=== PATIENT | female | born 1980 | race Caucasian/White ===

== ENCOUNTER → 2016-12-21 | Outpatient (CLI) | payer OTHER ==
[~2016-12-21] MED LIST: ADVIN25/60 INH; ALBUAER2 INH; ASCO500C43 PO; CHOL1000 PO; CHOL100010 PO; ENOX120I SQ; FERR1TAB13 PO; FERR325T51 PO; HYDR-5688 PO; LABE100T23 PO; LEVO112T4 PO; RANI300C PO; VENL150C56 PO; VNTHFA/IN INH
== END | disposition home or self-care (01) ==
LOC: C.PAPS 15:19
PROVIDERS: ATTEND Obstetrics & Gynecology
DX: Z01.419 Encounter for gynecological examination (general) (routine) without abnormal findings (principal)

== ENCOUNTER 2017-06-09 12:29 | Emergency (ER) | payer OTHER ==
[~2017-06-09] VITALS: Ht 162.6 cm; Wt 145.6 kg
[~2017-06-09 12:29] MED LIST changes: -CHOL1000 PO; -ENOX120I SQ; -FERR1TAB13 PO; -HYDR-5688 PO; -VNTHFA/IN INH
[2017-06-09 12:34] VITALS: TEMP 36.8; Ht 162.6 cm; Wt 145.6 kg
--- NOTE | 2017-06-09 13:09 | EMERGENCY ROOM VISIT NOTE ---
History First contact with patient: 12:38 Chief Complaint: CALF PAIN Stated Complaint: LEFT LEG PAIN,CRAMPING,CHEST TIGHTNESS History of Present Illness The patient is a 36 year old female who presents to the Emergency Room via private vehicle with complaints of "left leg pain, cramping, chest tightness". The patient states that she has a history of DVT, and pulmonary embolism in 2013. She states that 2 days ago, she began with heaviness in the back of the left calf, there is been persistent. She denies any injury or trauma. She states that with walking, the area feels weird. She states that it also radiates the medial aspect of the calf. She notes that last evening she developed slight chest tightness, but believes it may be her asthma or anxiety. She is currently not on any anticoagulation therapy. She denies any shortness of breath. Review of Systems A complete 10-point Review of Systems was discussed with the patient, with pertinent positives and negatives listed in the History of Present Illness. All remaining Review of Systems questions can be considered negative unless otherwise specified. Past Medical/Surgical History Medical Problems: (1) Acute bronchitis (2) Advanced maternal age, primigravida in third trimester, antepartum (3) Asthma (4) Bronchitis (5) Chest pain (6) Decreased movement (7) Encounter for supervision of high risk in third trimester, antepartum (8) Factor V Leiden carrier (9) Foreign body entering through skin (10) HTN (hypertension) (11) Otitis media (12) PNA (pneumonia) (13) Pre-eclampsia or eclampsia superimposed on pre-existing hypertension, antepartum (14) Preeclampsia (15) (16) Pulmonary emboli (17) Syncope (18) UTI (urinary tract infection) Family History FH: gallbladder disease FH: heart disease Hypertension Social History Smoking Status: Never Smoker Alcohol Use: none Drug Use: none Marital Status: Housing Status: lives with family Occupation Status: employed Current/Historical Medications Scheduled Ascorbic Acid (Vitamin C 500 mg), 1 TAB PO QAM Cholecalciferol (Vitamin D), 1,000 INTER.UNIT PO QAM Ferrous Sulfate (Iron Supplement), 325 MG PO QAM Labetalol Hcl (Labetalol Hcl), 200 MG PO QAM Labetalol Hcl (Labetalol Hcl), 100 MG PO HS Levothyroxine Sodium (Levothyroxine Sodium), 112 MCG PO QAM Ranitidine Hcl (Ranitidine Hcl), 300 MG PO QAM Venlafaxine Hcl (Effexor Extended Rel), 150 MG PO QAM Scheduled PRN Albuterol (Ventolin), 2 PUFFS INH Q4H PRN for Rescue/SOB Fluticasone Prop/Salmeterol (Advair Diskus 250/50 60 Dose), 1 PUFF INH BID PRN for SOB/Wheezing Physical Exam Vital Signs Date Time Temp Pulse Resp B/P (MAP) Pulse Ox O2 Delivery O2 Flow Rate FiO2 06/09/17 14:48 88 18 146/80 96 Room Air 06/09/17 14:06 87 18 146/89 97 Room Air 06/09/17 13:35 88 06/09/17 13:28 95 Room Air 06/09/17 12:34 36.8 96 18 144/85 98 Room Air Physical Exam VITAL SIGNS - Vital signs and nursing notes were reviewed. Afebrile, hypertensive 144/85, non-tachycardic and is saturating well on room air 98%. GENERAL -36-year-old female appearing her stated age who is in no acute distress. Communicates well with provider and answers questions appropriately. SKIN - Without rashes. No petechial rashes. HEAD - NC/AT. LUNGS - Chest wall symmetric without accessory muscle use, intercostals retractions, or central cyanosis. Normal vesicular breath sounds CTA B/L. No wheezes, rales, or rhonchi appreciated. CARDIAC - RRR with S1/S2. No murmur, rubs, or gallops appreciated. ABDOMEN - Abdominal contour without pulsations or visible masses. BS normoactive all four quadrants. No tenderness, palpable masses, hepatosplenomegaly, or ascites noted. EXTREMITIES - No clubbing or peripheral cyanosis. No pretibial edema present. No calf tenderness. No evidence of cellulitis. +5/5 strength noted in UE/LE bilaterally. Medical Decision & Procedures ER Provider Diagnostic Interpretation: (CHEST FOR PE) ANGIO WITH CT DOSE: 716.15 mGy.cm HISTORY: Chest pain dyspnea TECHNIQUE: Multiaxial CT images of the chest were performed following the intravenous administration of contrast to evaluate the pulmonary arteries. Maximal intensity projection images were also obtained. A dose lowering technique was utilized adhering to the principles of ALARA. COMPARISON STUDY: 09/16/2016 FINDINGS: There is a normal caliber thoracic aorta with no evidence for dissection. There is no evidence for pulmonary embolus. No pleural effusions. No pneumothorax. The liver and spleen are unremarkable. No mediastinal or hilar lymphadenopathy. The central airways are patent. The lungs are clear. IMPRESSION: No evidence for pulmonary embolus. Lungs are clear. The above report was generated using voice recognition software. It may contain grammatical, syntax or spelling errors. Electronically signed by: Shai Guy M.D. 06/09/2017 5:29 PM Dictated Date/Time: 06/09/2017 5:27 PM SINGLE VIEW CHEST CLINICAL HISTORY: Atypical chest pain. FINDINGS: An AP, portable, upright chest radiograph is compared to study dated 01/09/2016 and correlated with chest CT dated 09/16/2016. The examination is degraded by portable technique, large body habitus, and patient rotation. The cardiomediastinal silhouette is unremarkable. There is mild chronic elevation of the right hemidiaphragm. The lungs and pleural spaces are clear. No pneumothorax is seen. The bony thorax is grossly intact. IMPRESSION: No active disease in the chest. Electronically signed by: Jordy Evans M.D. 06/09/2017 1:08 PM Dictated Date/Time: 06/09/2017 1:08 PM ULTRASOUND LEFT LOWER EXTREMITY VENOUS CLINICAL HISTORY: Left calf tightness. COMPARISON STUDY: Bilateral lower extremity venous ultrasound dated 05/23/2015. TECHNIQUE: Real-time, grayscale, and color Doppler sonography of the deep veins of the left lower extremity was performed from the inguinal crease to the calf. Compression and augmentation were utilized. FINDINGS: There is no sonographic evidence of deep venous thrombosis identified in the left lower extremity. The common femoral, superficial femoral, and popliteal veins are patent and normally compressible. The greater saphenous vein and the profunda femoris vein at the junction with the common femoral vein are clear. The visualized calf veins are patent. IMPRESSION: There is no sonographic evidence of deep venous thrombosis identified in the left lower extremity. Electronically signed by: Jordy Evans M.D. 06/09/2017 2:46 PM Dictated Date/Time: 06/09/2017 2:45 PM Laboratory Results 06/09/17 13:25 Red Blood Count 4.50, Mean Corpuscular Volume 90.0, Mean Corpuscular Hemoglobin 30.2, Mean Corpuscular Hemoglobin Concent 33.6, Mean Platelet Volume 9.8, Neutrophils (%) (Auto) 64.9, Lymphocytes (%) (Auto) 26.7, Monocytes (%) (Auto) 6.5, Eosinophils (%) (Auto) 1.2, Basophils (%) (Auto) 0.5, Neutrophils # (Auto) 6.64, Lymphocytes # (Auto) 2.73, Monocytes # (Auto) 0.67, Eosinophils # (Auto) 0.12, Basophils # (Auto) 0.05 06/09/17 13:25 Test 06/09/17 13:25 06/09/17 13:32 06/09/17 16:39 White Blood Count 10.23 K/uL (4.8-10.8) Red Blood Count 4.50 M/uL (4.2-5.4) Hemoglobin 13.6 g/dL (12.0-16.0) Hematocrit 40.5 % (37-47) Mean Corpuscular Volume 90.0 fL (80-100) Mean Corpuscular Hemoglobin 30.2 pg (25-34) Mean Corpuscular Hemoglobin Concent 33.6 g/dl (32-36) Platelet Count 258 K/uL (130-400) Mean Platelet Volume 9.8 fL (7.4-10.4) Neutrophils (%) (Auto) 64.9 % Lymphocytes (%) (Auto) 26.7 % Monocytes (%) (Auto) 6.5 % Eosinophils (%) (Auto) 1.2 % Basophils (%) (Auto) 0.5 % Neutrophils # (Auto) 6.64 K/uL (1.4-6.5) Lymphocytes # (Auto) 2.73 K/uL (1.2-3.4) Monocytes # (Auto) 0.67 K/uL (0.11-0.59) Eosinophils # (Auto) 0.12 K/uL (0-0.5) Basophils # (Auto) 0.05 K/uL (0-0.2) RDW Standard Deviation 41.0 fL (36.4-46.3) RDW Coefficient of Variation 12.6 % (11.5-14.5) Immature Granulocyte % (Auto) 0.2 % Immature Granulocyte # (Auto) 0.02 K/uL (0.00-0.02) Prothrombin Time 10.7 SECONDS (9.0-12.0) Prothromb Time International Ratio 1.0 (0.9-1.1) Activated Partial Thromboplast Time 26.6 SECONDS (21.0-31.0) Partial Thromboplastin Ratio 1.0 D-Dimer 420 ug/L FEU (0-500) Anion Gap 5.0 mmol/L (3-11) Est Creatinine Clear Calc Drug Dose 138.4 ml/min Estimated GFR () 109.2 Estimated GFR (Non- 94.2 BUN/Creatinine Ratio 19.8 (10-20) Calcium Level 9.4 mg/dl (8.5-10.1) Magnesium Level 2.2 mg/dl (1.8-2.4) Total Bilirubin 0.3 mg/dl (0.2-1) Aspartate Amino Transf (AST/SGOT) 27 U/L (15-37) Alanine Aminotransferase (ALT/SGPT) 51 U/L (12-78) Alkaline Phosphatase 76 U/L (45-117) Total Creatine Kinase 245 U/L (26-192) Creatine Kinase MB 2.2 ng/ml (0.5-3.6) Creatine Kinase MB Ratio 0.9 (0-3.0) Total Protein 7.8 gm/dl (6.4-8.2) Albumin 3.9 gm/dl (3.4-5.0) Globulin 3.9 gm/dl (2.5-4.0) Albumin/Globulin Ratio 1.0 (0.9-2) Thyroid Stimulating Hormone (TSH) 2.210 uIu/ml (0.300-4.500) Bedside Troponin I < 0.030 ng/ml (0-0.045) Bedside D-Dimer > 450 ng/mlFEU (0-450) Medical Decision Patient was seen and evaluated as above. After obtaining a thorough history and physical examination, IV access was initiated and the above workup was performed. She persists was today with left lower extremity pain as well as chest tightness/shortness of breath. She is a history of PE in the past. Bedside EKG reveals normal sinus rhythm, questionable left ventricular hypertrophy. This was compared to previous, and was normal. No significant change was found. CBC reveals no leukocytosis or anemia. Coag study normal. D -dimer high. CMP reveals total CK high at 245. Otherwise unremarkable. Chest x-ray negative. Ultrasound negative. Benefits versus risk of obtaining CT the chest but discussed with the patient, and the decision was made to scan secondary to her underlying history and symptoms today. CT of the chest results as above. No evidence of PE. Patient this time appears stable for discharge. She is to follow-up with her family doctor in today's visit. Point care troponin was also negative. She was educated upon worrisome symptoms which to return, had questions answered prior to discharge, and was discharged home in good condition. In evaluation treatment this patient following differential diagnoses were entertained: NV, PE, ACS, costochondritis, rhabdomyolysis, among others. Impression Primary Impression: Pain of left calf Departure Information Dispostion Home / Self-Care Condition GOOD Referrals Vickie Brambila M.D. (PCP) Patient Instructions My [facility] Additional Instructions You were seen in emergency room for left lower extremity pain. Also slight shortness of breath. CT of her chest and ultrasound did not reveal any blood clot. Your CPK was slightly elevated, please drink plenty of fluids and have this repeated with her family doctor. Please schedule follow-up with family doctor regarding today's visit. Please return to the emergency department with any new/concerning symptoms.
[2017-06-09 13:28] VITALS: O2SAT 95
[2017-06-09 13:35] LABS: BASO % 0.5 %; BASO ABS # 0.05 K/uL (0-0.2); COMPLETE YES; EOS % 1.2 %; HEMATOCRIT 40.5 % (37-47); IG% 0.2 %; LYMPH % 26.7 %; LYMPH ABS # 2.73 K/uL (1.2-3.4); MEAN CORPUSCULAR HEMOGLOBIN 30.2 pg (25-34); MEAN CORPUSCULAR HGB CONC 33.6 g/dl (32-36); MEAN PLATELET VOLUME 9.8 fL (7.4-10.4); MONO % 6.5 %; NEUT % 64.9 %; PLATELET COUNT 258 K/uL (130-400); WHITE BLOOD COUNT 10.23 K/uL (4.8-10.8)
[2017-06-09 13:45] LABS: PROTHROMBIN TIME (PATIENT) 10.7 SECONDS (9.0-12.0)
[2017-06-09] MEDS ORDERED: LABE100T23 PO (13:51)
[2017-06-09 13:54] LABS: BUN/CREATININE RATIO 19.8 (10-20); CALCIUM 9.4 mg/dl (8.5-10.1); CREATININE 0.8 mg/dl (0.60-1.20); MAGNESIUM 2.2 mg/dl (1.8-2.4); POTASSIUM 4.1 mmol/L (3.5-5.1)
[2017-06-09 14:05] LABS: CKMB/CK RATIO 0.9 (0-3.0); THYROID STIMULATING HORMONE 2.21 uIu/ml (0.300-4.500)
--- NOTE | 2017-06-09 14:47 | DIAGNOSTIC IMAGING REPORT ---
ULTRASOUND LEFT LOWER EXTREMITY VENOUS CLINICAL HISTORY: Left calf tightness. COMPARISON STUDY: Bilateral lower extremity venous ultrasound dated 05/23/2015. TECHNIQUE: Real-time, grayscale, and color Doppler sonography of the deep veins of the left lower extremity was performed from the inguinal crease to the calf. Compression and augmentation were utilized. FINDINGS: There is no sonographic evidence of deep venous thrombosis identified in the left lower extremity. The common femoral, superficial femoral, and popliteal veins are patent and normally compressible. The greater saphenous vein and the profunda femoris vein at the junction with the common femoral vein are clear. The visualized calf veins are patent. IMPRESSION: There is no sonographic evidence of deep venous thrombosis identified in the left lower extremity. Electronically signed by: Jordy Evans M.D. 06/09/2017 2:46 PM Dictated Date/Time: 06/09/2017 2:45 PM
[2017-06-09] MEDS ORDERED: OPTIRAY 320 IV PRN (17:30)
--- NOTE | 2017-06-09 17:31 | DIAGNOSTIC IMAGING REPORT ---
(CHEST FOR PE) ANGIO WITH CT DOSE: 716.15 mGy.cm HISTORY: Chest pain dyspnea TECHNIQUE: Multiaxial CT images of the chest were performed following the intravenous administration of contrast to evaluate the pulmonary arteries. Maximal intensity projection images were also obtained. A dose lowering technique was utilized adhering to the principles of ALARA. COMPARISON STUDY: 09/16/2016 FINDINGS: There is a normal caliber thoracic aorta with no evidence for dissection. There is no evidence for pulmonary embolus. No pleural effusions. No pneumothorax. The liver and spleen are unremarkable. No mediastinal or hilar lymphadenopathy. The central airways are patent. The lungs are clear. IMPRESSION: No evidence for pulmonary embolus. Lungs are clear. The above report was generated using voice recognition software. It may contain grammatical, syntax or spelling errors. Electronically signed by: Shai Guy M.D. 06/09/2017 5:29 PM Dictated Date/Time: 06/09/2017 5:27 PM
[2017-06-09 17:42] VITALS: BP 150/97; PULSE 90; O2SAT 97
[2017-06-12] MEDS ORDERED: HYDR-5688 PO (07:25)
[2017-06-12] MEDS ORDERED: ENOX120I SQ (14:41)
== END 2017-06-09 17:42 | disposition home or self-care (01) ==
LOC: C.EDB 12:32 → C.EDA 17:42
DX: M79.605 Pain in left leg (principal); I10 Essential (primary) hypertension; Z79.899 Other long term (current) drug therapy; Z86.711 Personal history of pulmonary embolism; Z86.718 Personal history of other venous thrombosis and embolism; Z87.01 Personal history of pneumonia (recurrent); Z87.09 Personal history of other diseases of the respiratory system; Z87.440 Personal history of urinary (tract) infections

== ENCOUNTER 2017-06-11 20:18 | Observation (INO) | payer OTHER ==
[~2017-06-11] VITALS: Ht 162.6 cm; Wt 138.3 kg
[2017-06-11] MEDS ORDERED: KETOROLAC TROMETHAMINE 30 MG/ML VIAL IV STA (20:37)
[2017-06-11] MEDS ORDERED: SODIUM CHLORIDE 0.9% 1000ML 1,000 ML IV STA (20:37)
[2017-06-11] MEDS ORDERED: SODIUM CHLORIDE 0.9% 1000ML 1,000 ML IV ONE (20:37)
--- NOTE | 2017-06-11 20:41 | EMERGENCY ROOM VISIT NOTE ---
History Report prepared by Channing: Cricket Odonnell Under the Supervision of: Dr. Angel House M.D. First contact with patient: 20:26 Chief Complaint: ABDOMINAL PAIN Stated Complaint: HERNIA PAIN SINCE LAST NIGHT, FACTOR V History of Present Illness The patient is a 36 year old female who presents to the Emergency Room with complaints of The patient is a 36 year old female who presents to the Emergency Room with complaints of worsening abdominal pain in the right lower abdominal quadrant. She describes the pain as "cramping," and notes that it waxes and wanes. The pain became more severe last night at 2200, 22 hours prior to arrival. The patient states that she has been informed of a hernia just below the belly button. She met with Dr. Bueno 1 week ago and is scheduled for surgery next month. She denies any trauma or injuries, and nausea/vomiting. She does have a history of PE and Factor V Leiden, but is not on any blood thinners at this time. Source of History: patient Onset: 22 hours SENSITOMETRIST Position: abdomen (RLQ) Quality: other (Known Hernia) Timing: waxes/wanes, worsening Associated Symptoms: No nausea, No vomiting Review of Systems See HPI for pertinent positives & negatives. A total of 10 systems reviewed and were otherwise negative. Past Medical & Surgical Medical Problems: (1) Acute bronchitis (2) Advanced maternal age, primigravida in third trimester, antepartum (3) Asthma (4) Bronchitis (5) Chest pain (6) Decreased movement (7) Encounter for supervision of high risk in third trimester, antepartum (8) Factor V Leiden carrier (9) Foreign body entering through skin (10) HTN (hypertension) (11) Otitis media (12) PNA (pneumonia) (13) Pre-eclampsia or eclampsia superimposed on pre-existing hypertension, antepartum (14) Preeclampsia (15) (16) Pulmonary emboli (17) Syncope (18) UTI (urinary tract infection) Old medical records were reviewed. Nurse's notes were reviewed and I agree with. Family History FH: gallbladder disease FH: heart disease Hypertension Social History Smoking Status: Never Smoker Alcohol Use: none Drug Use: none Marital Status: Housing Status: lives with family Occupation Status: employed Current/Historical Medications Scheduled Albuterol Hfa (Ventolin Hfa), 2-4 PUFFS INH Q6H Ascorbic Acid (Vitamin C 500 mg), 1 TAB PO QAM Cholecalciferol (Vitamin D3), 1 TAB PO DAILY Ferrous Sulfate (Kp Ferrous Sulfate), 1 TAB PO DAILY Labetalol Hcl (Labetalol Hcl), 200 MG PO QAM Labetalol Hcl (Labetalol Hcl), 100 MG PO HS Levothyroxine Sodium (Levothyroxine Sodium), 112 MCG PO QAM Ranitidine Hcl (Ranitidine Hcl), 300 MG PO QAM Venlafaxine Hcl (Effexor Extended Rel), 150 MG PO QAM Scheduled PRN Fluticasone Prop/Salmeterol (Advair Diskus 250/50 60 Dose), 1 PUFF INH BID PRN for SOB/Wheezing Allergies Coded Allergies: Doxycycline (Verified Allergy, Intermediate, RASH, 06/11/17) Physical Exam Vital Signs Date Time Temp Pulse Resp B/P (MAP) Pulse Ox O2 Delivery O2 Flow Rate FiO2 06/11/17 22:13 92 18 129/91 97 Room Air 06/11/17 20:21 36.7 96 16 157/95 95 Room Air Physical Exam General: Mildly uncomfortable, obese female, NAD. HEENT: Normal cephalic atraumatic. Pupils are equal round and reactive to light. Extraocular movements are intact. Oropharynx is pink with moist mucous membranes. No swelling of the mouth lips or tongue. Neck: Supple with a midline trachea. No meningeal signs or stiffness, no JVD or bruits. No Stridor. Chest: Clear to auscultation bilaterally. No wheezes or rhonchi. No increased work of breathing. Heart: regular rate and rhythm. Abdomen: There is no redness or warmth, mildly tender just below the umbilicus to the right. There is mild fullness. Extremities: No cyanosis clubbing or edema. No calf tenderness or assymetry Spine/Back. Non tender to palpation. No CVA tenderness Skin: Good turgor without rashes. Neurologic exam: Cranial nerves two through 12 are intact. Motor and sensation are intact and symmetrical throughout. Medical Decision & Procedures ER Provider Diagnostic Interpretation: Radiology results as stated below per my review and radiologist interpretation: ABDOMEN AND PELVIS CT WITHOUT CONTRAST CT DOSE: 2012.53 mGy.cm HISTORY: Lower abdominal pain. eval for herina/obst TECHNIQUE: Multiaxial CT images of the abdomen and pelvis were performed without contrast. A dose lowering technique was utilized adhering to the principles of ALARA. COMPARISON STUDY: Abdomen and pelvis CT 07/04/2008. FINDINGS: The lung bases are clear. No pneumoperitoneum. No pneumatosis. Bilateral L5 spondylolysis with associated spondylolisthesis, unchanged. Hepatic steatosis. The unenhanced spleen, gallbladder, adrenal glands, pancreas, and kidneys are unremarkable. No retroperitoneal lymphadenopathy. Stable prominent periportal lymph nodes. Therefore, these are likely benign. The bladder is not well-distended but appears unremarkable. The uterus and adnexa are within normal limits. Normal appendix. Small right-sided infraumbilical hernia containing a short segment of small bowel. The small bowel proximal to this hernia is mildly distended and fluid-filled. Therefore, this represents the transition point for a small bowel obstruction. Mild fat stranding surrounding the hernia site and mildly distended small bowel within the midabdomen. The distended small bowel immediately proximal to the hernia may be slightly thickened. IMPRESSION: Small bowel obstruction with the transition point at the small right infraumbilical hernia. Mild fat stranding and mild thickening within the small bowel within and immediately proximal to the hernia site. Although nonspecific, this raises the possibility of early vascular compromise. No pneumoperitoneum or pneumatosis at this time. Electronically signed by: Anthony Henao M.D. 06/11/2017 10:16 PM Dictated Date/Time: 06/11/2017 10:08 PM Laboratory Results 06/11/17 20:54 Red Blood Count 4.65, Mean Corpuscular Volume 90.3, Mean Corpuscular Hemoglobin 29.9, Mean Corpuscular Hemoglobin Concent 33.1, Mean Platelet Volume 10.3, Neutrophils (%) (Auto) 62.9, Lymphocytes (%) (Auto) 29.0, Monocytes (%) (Auto) 5.7, Eosinophils (%) (Auto) 1.7, Basophils (%) (Auto) 0.5, Neutrophils # (Auto) 7.96, Lymphocytes # (Auto) 3.67, Monocytes # (Auto) 0.72, Eosinophils # (Auto) 0.21, Basophils # (Auto) 0.06 06/11/17 20:54 Test 06/11/17 20:52 06/11/17 20:54 Urine Test NEG (NEG) White Blood Count 12.65 K/uL (4.8-10.8) Red Blood Count 4.65 M/uL (4.2-5.4) Hemoglobin 13.9 g/dL (12.0-16.0) Hematocrit 42.0 % (37-47) Mean Corpuscular Volume 90.3 fL (80-100) Mean Corpuscular Hemoglobin 29.9 pg (25-34) Mean Corpuscular Hemoglobin Concent 33.1 g/dl (32-36) Platelet Count 276 K/uL (130-400) Mean Platelet Volume 10.3 fL (7.4-10.4) Neutrophils (%) (Auto) 62.9 % Lymphocytes (%) (Auto) 29.0 % Monocytes (%) (Auto) 5.7 % Eosinophils (%) (Auto) 1.7 % Basophils (%) (Auto) 0.5 % Neutrophils # (Auto) 7.96 K/uL (1.4-6.5) Lymphocytes # (Auto) 3.67 K/uL (1.2-3.4) Monocytes # (Auto) 0.72 K/uL (0.11-0.59) Eosinophils # (Auto) 0.21 K/uL (0-0.5) Basophils # (Auto) 0.06 K/uL (0-0.2) RDW Standard Deviation 41.3 fL (36.4-46.3) RDW Coefficient of Variation 12.7 % (11.5-14.5) Immature Granulocyte % (Auto) 0.2 % Immature Granulocyte # (Auto) 0.03 K/uL (0.00-0.02) Anion Gap 3.0 mmol/L (3-11) Est Creatinine Clear Calc Drug Dose 127.6 ml/min Estimated GFR () 102.9 Estimated GFR (Non- 88.8 BUN/Creatinine Ratio 16.7 (10-20) Calcium Level 9.4 mg/dl (8.5-10.1) Total Bilirubin 0.3 mg/dl (0.2-1) Direct Bilirubin < 0.1 mg/dl (0-0.2) Aspartate Amino Transf (AST/SGOT) 19 U/L (15-37) Alanine Aminotransferase (ALT/SGPT) 48 U/L (12-78) Alkaline Phosphatase 77 U/L (45-117) Total Protein 8.2 gm/dl (6.4-8.2) Albumin 4.0 gm/dl (3.4-5.0) Lipase 116 U/L (73-393) Laboratory studies as stated above per my review. Medications Administered Medications (Trade) Dose Ordered Sig/Rhiannon Route Start Time Stop Time Status Last Admin Dose Admin Sodium Chloride 1,000 ml @ 999 mls/hr Q1H1M STAT IV 06/11/17 20:37 06/11/17 21:37 DC 06/11/17 21:11 999 MLS/HR Sodium Chloride 1,000 ml @ 150 mls/hr Q6H40M ONCE IV 06/11/17 20:37 06/12/17 03:16 06/11/17 23:30 150 MLS/HR Ketorolac Tromethamine (Toradol Inj) 30 mg NOW STAT IV 06/11/17 20:37 06/11/17 20:40 DC 06/11/17 21:13 30 MG Ondansetron HCl (Zofran Inj) 4 mg NOW STAT IV 06/11/17 22:26 06/11/17 22:28 DC 06/11/17 22:42 4 MG Morphine Sulfate (MoRPHine SULFATE INJ) 2 mg NOW STAT IV 06/11/17 22:26 06/11/17 22:28 DC 06/11/17 22:44 2 MG Lorazepam (Ativan Tab) 1 mg NOW STAT SL 06/11/17 22:27 06/11/17 23:27 DC 06/11/17 23:30 1 MG ED Course 2026: Past medical records reviewed. The patient was evaluated in room A12, and a complete history and physical examination were performed. 2036: Ordered Toradol 30 mg IV, Sodium Chloride 1000 mL @ 150 mL/hr IV, Sodium Chloride 1000 mL @ 999 mL/hr IV. 2146: I reevaluated the patient at this time. She appears comfortable. She is declining more pain medication. 2225: Ordered Morphine Sulfate 2 mg IV, Zofran 4 mg IV. 2301: I reevaluated the patient at this time. She is resting in bed. I have paged the surgeon at this time. He is currently in the operating room. I left a message for him and he will return my call when he scrubs out. 2306: I discussed the case with Dr. Filiberto Cortez at this time. He will come to the department to evaluate the patient. Medical Decision Differential Diagnosis includes; Hernia, bowel obstruction, infection, electrolyte or metabolic abnormality. This patient comes in as described above. She was placed in room A12. She is here for treatment and evaluation of abdominal pain. She has a known hernia. She is scheduled to have this operated on about a month. She says it has been bothering her for several months off and on but it was more persistent today. On exam, it is not red or warm. She's had no fever or vomiting. She has no peritonitis because of some tenderness. IV access established and she was given Toradol 30 mg IV blood work was obtained. I also ordered a CAT scan to rule out any incarceration of the hernia or bowel obstruction. She was reassessed frequently. She did require morphine 2 mg IV and Zofran 4 mg IV for pain and nausea management. Her white count is mildly elevated she's no acute electrode or metabolic abdomen was. CAT scan does show a hernia with some small bowel obstruction. I'm concerned that this is starting to incarcerate and needs to be operated on sooner than later and cannot wait to be electively fixed. I did have Dr. Cowan, the sanitation worker cleaning machinery surgeon, see the patient emergency department. He is going to take her to the operating room for operative repair she also received 1 mg of Ativan sublingual as she was started feeling anxious after talking to him about surgery. She will be admitted and taken to the OR. Consults Time Called: [phone] Consulting Physician: Dr. Filiberto Cortez Returned Call: [phone] I discussed the case with Dr. Filiberto Cortez at this time. He will come to the department to evaluate the patient. Impression Primary Impression: Abdominal wall hernia Additional Impression: Abdominal pain Scribe Attestation The scribe's documentation has been prepared under my direction and personally reviewed by me in its entirety. I confirm that the note above accurately reflects all work, treatment, procedures, and medical decision making performed by me. Departure Information Dispostion Being Evaluated By Hospitalist Vickie Harden M.D. (PCP) Patient Instructions My [facility] Problem Qualifiers
[2017-06-11] MEDS ORDERED: CHOL1000 PO (21:11)
[2017-06-11] MEDS ORDERED: VNTHFA/IN INH (21:11)
[2017-06-11] MEDS ORDERED: FERR1TAB13 PO (21:11)
[2017-06-11 21:26] LABS: BASO % 0.5 %; BASO ABS # 0.06 K/uL (0-0.2); COMPLETE YES; EOS % 1.7 %; IG% 0.2 %; LYMPH ABS # 3.67 K/uL (1.2-3.4); MEAN CELL VOLUME 90.3 fL (80-100); MEAN CORPUSCULAR HEMOGLOBIN 29.9 pg (25-34); MEAN CORPUSCULAR HGB CONC 33.1 g/dl (32-36); MEAN PLATELET VOLUME 10.3 fL (7.4-10.4); MONO % 5.7 %; NEUT % 62.9 %; PLATELET COUNT 276 K/uL (130-400); RED BLOOD COUNT 4.65 M/uL (4.2-5.4); WHITE BLOOD COUNT 12.65 K/uL (4.8-10.8)
[2017-06-11 21:45] LABS: BLOOD UREA NITROGEN 14 mg/dl (7-18); BUN/CREATININE RATIO 16.7 (10-20); CALCIUM 9.4 mg/dl (8.5-10.1); CARBON DIOXIDE 31 mmol/L (21-32); CHLORIDE 104 mmol/L (98-107); CREATININE 0.84 mg/dl (0.60-1.20); GLUCOSE 106 mg/dl (70-99); POTASSIUM 4.2 mmol/L (3.5-5.1); SODIUM 138 mmol/L (136-145)
[2017-06-11 21:48] LABS: ALKALINE PHOSPHATASE 77 U/L (45-117); ALT/SGPT 48 U/L (12-78); AST/SGOT 19 U/L (15-37)
--- NOTE | 2017-06-11 22:17 | DIAGNOSTIC IMAGING REPORT ---
ABDOMEN AND PELVIS CT WITHOUT CONTRAST CT DOSE: 2012.53 mGy.cm HISTORY: Lower abdominal pain. eval for herina/obst TECHNIQUE: Multiaxial CT images of the abdomen and pelvis were performed without contrast. A dose lowering technique was utilized adhering to the principles of ALARA. COMPARISON STUDY: Abdomen and pelvis CT 07/04/2008. FINDINGS: The lung bases are clear. No pneumoperitoneum. No pneumatosis. Bilateral L5 spondylolysis with associated spondylolisthesis, unchanged. Hepatic steatosis. The unenhanced spleen, gallbladder, adrenal glands, pancreas, and kidneys are unremarkable. No retroperitoneal lymphadenopathy. Stable prominent periportal lymph nodes. Therefore, these are likely benign. The bladder is not well-distended but appears unremarkable. The uterus and adnexa are within normal limits. Normal appendix. Small right-sided infraumbilical hernia containing a short segment of small bowel. The small bowel proximal to this hernia is mildly distended and fluid-filled. Therefore, this represents the transition point for a small bowel obstruction. Mild fat stranding surrounding the hernia site and mildly distended small bowel within the midabdomen. The distended small bowel immediately proximal to the hernia may be slightly thickened. IMPRESSION: Small bowel obstruction with the transition point at the small right infraumbilical hernia. Mild fat stranding and mild thickening within the small bowel within and immediately proximal to the hernia site. Although nonspecific, this raises the possibility of early vascular compromise. No pneumoperitoneum or pneumatosis at this time. Electronically signed by: Anthony Henao M.D. 06/11/2017 10:16 PM Dictated Date/Time: 06/11/2017 10:08 PM
[2017-06-11] MEDS ORDERED: ONDANSETRON INJ 2 MG/ML 2 ML VIAL IV STA (22:26)
[2017-06-11] MEDS ORDERED: MoRPHine SULFATE 2 MG/ML CARP IV STA (22:26)
[2017-06-11] MEDS ORDERED: LORAZEPAM 1 MG TAB SL STA (22:27)
--- NOTE | 2017-06-11 23:59 | History and Physical ---
History & Physical Date Jun 11, 2017. Chief Complaint pt with about a 6 mos hx of symptomatic hernia in lower abdominal wall. had seen Dr. Bueno last week and had plans for elective repair next month. began having worse pain yesterday which did not resolve. feels ok when lying still but gets pain with most movements. currently feeling ok. no n/v. History of Present Illness The patient is a 36 year old female with complaints of Past Medical/Surgical History Medical Problems: (1) Acute bronchitis (2) Advanced maternal age, primigravida in third trimester, antepartum (3) Asthma (4) Bronchitis (5) Chest pain (6) Decreased movement (7) Encounter for supervision of high risk in third trimester, antepartum (8) Factor V Leiden carrier (9) Foreign body entering through skin (10) HTN (hypertension) (11) Otitis media (12) PNA (pneumonia) (13) Pre-eclampsia or eclampsia superimposed on pre-existing hypertension, antepartum (14) Preeclampsia (15) (16) Pulmonary emboli (17) Syncope (18) UTI (urinary tract infection) Additional History Hepatic Disease: No Endocrine Disorder: No Kidney Disease: No Hypertension: No Heart Disease: No Bleeding Tendencies: Yes (factor V leiden) Infectious Diseases: No Allergies Coded Allergies: Doxycycline (Verified Allergy, Intermediate, RASH, 06/11/17) Home Medications Scheduled Albuterol Hfa (Ventolin Hfa), 2-4 PUFFS INH Q6H Ascorbic Acid (Vitamin C 500 mg), 1 TAB PO QAM Cholecalciferol (Vitamin D3), 1 TAB PO DAILY Ferrous Sulfate (Kp Ferrous Sulfate), 1 TAB PO DAILY Labetalol Hcl (Labetalol Hcl), 200 MG PO QAM Labetalol Hcl (Labetalol Hcl), 100 MG PO HS Levothyroxine Sodium (Levothyroxine Sodium), 112 MCG PO QAM Ranitidine Hcl (Ranitidine Hcl), 300 MG PO QAM Venlafaxine Hcl (Effexor Extended Rel), 150 MG PO QAM Scheduled PRN Fluticasone Prop/Salmeterol (Advair Diskus 250/50 60 Dose), 1 PUFF INH BID PRN for SOB/Wheezing Physical Examination Skin: warm/dry Eyes: normal inspection, EOMI Head: normocephalic, atraumatic Neck: supple, trachea midline Respiratory/Chest: normal breath sounds, no respiratory distress Cardiovascular: regular rate, rhythm Abdomen / GI: + pertinent finding (unable to palpate hernia b/c of body habitus. nontender) Extremities: normal inspection Neurologic/Psych: alert, oriented x 3 Diagnosis incarcerated ventral hernia pt comfortable currently but ct shows small bowel incarceration with transition point 2 more OR cases already to go tonight...will plan on repair 1 st case in AM pt agreeable discussed risks ( bleeding,infection,infection of mesh, injury to other organs such as bowel, dvt/pe,mi etc..) we discussed her options will start lovenox for her factor V will go to OR sooner if pt's status changes clinically.
[2017-06-12] VITALS (12 sets, daily range): BP systolic 120–144; BP diastolic 71–92; PULSE 93–120; TEMP 36.5–36.9; O2SAT 90–96; Ht 162.6 cm; Wt 138.3 kg
[2017-06-12] MEDS ORDERED: LACTATED RINGER'S 1000ML 1,000 ML IV SCH
[2017-06-12] MEDS ORDERED: MoRPHine SULFATE 4 MG/ML 1 ML CARP\\VIAL ONE (00:36)
[2017-06-12] MEDS: MoRPHine SULFATE 4 MG/ML 1 ML CARP\\VIAL IV PRN ×2 (00:40→04:11)
[2017-06-12] MEDS: ENOXAPARIN 100 MG/1ML SYR SQ SCH ×2 (01:31→14:40)
[2017-06-12] MEDS: ONDANSETRON INJ 2 MG/ML 2 ML VIAL IV PRN ×2 (04:14→18:49)
[2017-06-12] MEDS ORDERED: IV FLUIDS COMPLETED PRN (04:15)
[2017-06-12] MEDS ORDERED: NURSING VERBAL MED ORDER ONE ×2 (05:30→14:45)
[2017-06-12] MEDS ORDERED: HYDROmorphone INJ 1 MG/ML SYR ONE (05:44)
[2017-06-12] MEDS ORDERED: LORAZEPAM INJ 0.5 MG in SYRINGE 0.75 ML IV ONE (06:00)
[2017-06-12] MEDS ORDERED: ROCURONIUM BROMIDE 10 MG/ML 5 ML VIAL ONE (06:52)
[2017-06-12] MEDS ORDERED: PROPOFOL IV EMULSION 10 MG/ML 20 ML VIAL IV ONE (06:52)
[2017-06-12] MEDS ORDERED: FENTANYL CITRATE INJ 50 MCG/1 ML 2 ML VIAL ONE ×2 (06:52)
[2017-06-12] MEDS ORDERED: MIDAZOLAM HCL 1 MG/ML 2ML VIAL ONE (06:52)
[2017-06-12] MEDS ORDERED: DEXAMETHASONE SOD INJ 4 MG/ML VIAL ONE (06:52)
[2017-06-12] MEDS ORDERED: ONDANSETRON INJ 2 MG/ML 2 ML VIAL ONE ×2 (06:52→09:54)
[2017-06-12] MEDS ORDERED: LIDOCAINE HCL 2% 2 ML VIAL (20MG/ML) ONE (06:52)
[2017-06-12] MEDS ORDERED: BUPIVACAINE/EPINEPHRINE 0.5% MPF 1:200,000 10 ML VIAL ONE (06:57)
[2017-06-12] MEDS ORDERED: CEFAZOLIN SOD 1 GM VIAL ONE (06:57)
--- NOTE | 2017-06-12 07:22 | History & Physical Bridge Note ---
H&P Re-Evaluation Bridge Note: I have examined the patient, reviewed the History & Physical and in the interval since the performance of the History & Physical I have noted the following changes of clinical significance: No changes noted
[2017-06-12] MEDS ORDERED: HYDR-5688 PO (07:25)
[2017-06-12] MEDS ORDERED: ATROPINE SULFATE 0.1 MG/ML 5ML SYR IV PRN (07:45)
[2017-06-12] MEDS ORDERED: ONDANSETRON INJ 2 MG/ML 2 ML VIAL IV PRN (07:45)
[2017-06-12] MEDS ORDERED: EpHEDrine SULFATE INJ 50 MG/ML AMP IV PRN (07:45)
[2017-06-12] MEDS ORDERED: FENTANYL CITRATE INJ 50 MCG/1 ML 2 ML VIAL IV PRN (07:45)
[2017-06-12] MEDS ORDERED: SUCCINYLCHOLINE CHLORIDE 20 MG/ML 10 ML VIAL IV ONE (08:02)
[2017-06-12] MEDS ORDERED: CLINDAMYCIN PHOS 150 MG/ML 2 ML VIAL ONE (08:02)
[2017-06-12] MEDS ORDERED: MoRPHine SULFATE 2 MG/ML CARP ONE (08:21)
[2017-06-12] MEDS: LABETALOL HCL 200 MG TAB PO SCH (09:00)
[2017-06-12] MEDS ORDERED: NEOSTIGMINE METHYLSULFATE 5 MG/5 ML SYR ONE (09:54)
[2017-06-12] MEDS ORDERED: GLYCOPYRROLATE INJ 0.2 MG/ML VIAL ONE (09:54)
[2017-06-12] MEDS ORDERED: ALBUTEROL HFA INHALER 8.5 GM INH ONE (10:04)
[2017-06-12] MEDS ORDERED: HYDROCODONE/ACETAMOPHEN 5/325MG TAB PO PRN (10:15)
[2017-06-12] MEDS ORDERED: ACETAMINOPHEN IV 100 ML IV PRN (10:15)
--- NOTE | 2017-06-12 10:20 | Anesthesiology Progress Note ---
Anesthesia Post Op Note Date & Time Jun 12, 2017 at 10:20 Vital Signs Vital Signs Past 12 Hours Date Time Temp Pulse Resp B/P (MAP) Pulse Ox O2 Delivery O2 Flow Rate FiO2 06/12/17 06:56 36.5 93 18 128/92 (104) 92 Room Air 06/12/17 01:44 36.6 95 16 132/91 Room Air 06/12/17 01:30 96 Room Air 06/12/17 01:22 36.6 95 16 132/91 (105) 96 Room Air 06/12/17 00:32 36.8 92 20 136/69 96 Room Air Notes Mental Status: alert / awake / arousable, participated in evaluation Pt Amnestic to Procedure: Yes Nausea / Vomiting: adequately controlled Pain: adequately controlled Airway Patency, RR, SpO2: stable & adequate BP & HR: stable & adequate Hydration State: stable & adequate Anesthetic Complications: no major complications apparent
--- NOTE | 2017-06-12 10:26 | [facility] Operative Report ---
Operative Report Operative Date Jun 12, 2017. Pre-Operative Diagnosis Incarcerated Ventral Hernia Post-Operative Diagnosis Incarcerated Ventral Hernia, Small Bowel Obstruction Procedure(s) Performed Laparascopic Convert to Open Ventral Hernia Repair with Mesh; Enterolysis Surgeon Dr. Benji De Los Santos Dictaphone Technician Surgeon(s) None per surgeon Estimated Blood Loss 30ML Findings incarcerated ventral hernia with adhesions Specimens None per surgeon Anesthesia get Complication(s) None Disposition Recovery Room / PACU Description of Procedure After informed consent was obtained the patient was taken to the operating suite placed in supine position. After successful intubation a Ortiz catheter and nasogastric tube were placed. Left arm was tucked and the abdomen was sterilely prepped and draped in usual fashion. We began with an upper abdominal midline incision with 11 blade scalpel and carried this down through the soft tissue using electrocautery. The anterior rectus fascia was opened using electrocautery and 2 #0 Vicryl stay sutures were placed. Peritoneum was entered using blunt finger penetration a finger sweep was performed to take down any underlying adhesions. A 12 mm Siu trocar was placed and the abdomen was insufflated to 20 mmHg. The laparoscope was inserted and the abdomen was examined 360. We readily found a lower midline ventral hernia. This was not at her old site but was rather an infraumbilical location. There was small bowel incarcerated within it. There was no evidence of any bowel ischemia. There was some small bowel dilation. I placed 3 left- sided 5 mm trochars. I tried for probably 30 minutes to take down the adhesions that were holding the small bowel in place. Basically the small bowel was to the undersurface of the dermis. Her body habitus made dissection difficult as well. I realized that it was simply going to be too dangerous to try to take down the small bowel adhesions laparoscopically. At this point I converted to an open procedure. I made a small midline incision in the infraumbilical region with a 10 blade scalpel and carried this down through the soft tissue using electrocautery. We able to readily find a hernia sac and opened it. There is a small loop of bowel incarcerated in a reasonably small hernia. I was unable to safely free it up without extending the fascial defect. I therefore made the hernia slightly larger than it had been and I was then able to use traction countertraction and sharp scissor lysis to tediously take down this small bowel adhesion. Eventually I was able to free up the entire small bowel. There was a very small serosal tear which I oversewed with 3-0 silk. There was no other injury or other abnormality once we did this. After I got the bowel freed up and put back in the abdominal cavity this left probably a 3 cm defect. I decided to use a V patch mesh. We used the [address] at into the abdominal cavity and pulled it up to the undersurface of the abdominal wall. I secured the mesh arms to either side of the fascia using 0 Ethibond with 4 point fixation on either side. I then primarily closed the fascial defect using #1 Ethibond in interrupted figure-of- eight fashion. Once all this was done I irrigated the wound and close it in multiple layers with 0 Vicryl for the deep layers 2-0 Vicryl for the mid layers and 4-0 Monocryl for the skin . I did reinsufflate the abdomen and took another look with the laparoscope. The mesh laid nice and tension free and completely covered the entire defect with plenty of overlap. The bowel looked healthy and there was no other abnormalities other than the uterus was adhesed to the anterior pelvic wall. There was adequate hemostasis. We removed the trochars and desufflated the abdomen. I closed the fascia of the camera port with 0 Vicryl in a figure of 8 fashion. All the wounds were irrigated and closed with 4-0 Monocryl. Marcaine was injected around for postoperative analgesia and skin glue used as a dressing. An OpSite dressing was placed over the larger incision. The patient was awaken extubated and transferred recovery in stable condition I attest to the content of the Intraoperative Record and any orders documented therein. Any exceptions are noted below.
[2017-06-12] MEDS ORDERED: SODIUM CHLOR 0.45% + 20MEQ KCL 1,000 ML IV SCH (11:00)
[2017-06-12] MEDS: HYDROCODONE/ACETAMOPHEN 5/325MG TAB PO PRN ×3 (14:41→23:47)
[2017-06-12] MEDS ORDERED: ENOX120I SQ (14:41)
--- NOTE | 2017-06-12 14:43 | Discharge Instructions ---
Discharge Instructions Date of Service Jun 12, 2017. Admission Reason for Admission: Abdominal Wall Hernia Discharge Discharge Diagnosis / Problem: incarcerated ventral hernia Discharge Goals Goal(s): Decrease discomfort, Improve function Activity Recommendations Activity Limitations: as noted below Lifting Limitations: no more than 10 pounds Exercise/Sports Limitations: until after follow-up appointment May Resume Sexual Activity: after follow-up appointment Shower/Bathe: tomorrow . Instructions / Follow-Up Instructions / Follow-Up call [phone] to schedule a follow up appointment with dr. de los santos in 1-2 weeks or if you have any problems/questions. Current Hospital Diet Patient's current hospital diet: Clear Liquid Diet Discharge Diet Recommended Diet: Regular Diet Procedures Procedures Performed: Laparascopic Convert to Open Ventral Hernia Repair with Mesh; Enterolysis Pending Studies Studies pending at discharge: no Medical Emergencies . Who to Call and When: Medical Emergencies: If at any time you feel your situation is an emergency, please call 911 immediately. . Non-Emergent Contact Non-Emergency issues call your: Primary Care Provider, Surgeon Call Non-Emergent contact if: temperature is above 101, wound has increased drainage, wound has increased redness, wound has increased pain . "Provider Documentation" section prepared by Benji De Los Santos. . VTE Core Measure Inpt VTE Proph given/why not?: Enoxaparin (Lovenox)NATHANIEL, T.E.Diane. Hernandez, SCD's
--- NOTE | 2017-06-12 14:47 | Surgery Progress Note ---
Surgery Progress Note Date of Service Jun 12, 2017. Subjective pt feeling ok...a little "groggy still"...thinks she wants to go home. Objective Vital Signs: Date Time Temp Pulse Resp B/P (MAP) Pulse Ox O2 Delivery O2 Flow Rate FiO2 06/12/17 14:25 36.7 109 16 120/86 (97) 90 Room Air 06/12/17 13:21 118 16 124/71 (88) 94 2.0 06/12/17 12:20 120 16 140/83 (102) 95 2.0 06/12/17 11:56 110 16 144/88 (106) 95 2.0 06/12/17 11:30 36.7 109 18 127/76 (93) 93 Room Air 2.0 06/12/17 11:30 93 Nasal Cannula 2.0 06/12/17 11:30 93 Room Air 2.0 06/12/17 11:00 36.2 99 18 122/79 95 Nasal Cannula 2 06/12/17 10:50 103 18 127/81 93 Nasal Cannula 2 06/12/17 10:40 109 18 136/81 96 Nasal Cannula 2 06/12/17 10:30 100 18 133/78 98 Mask 5 06/12/17 10:20 101 18 120/83 98 Mask 10 06/12/17 10:09 36 95 16 132/83 99 Mask 10 06/12/17 06:56 36.5 93 18 128/92 (104) 92 Room Air 06/12/17 01:44 36.6 95 16 132/91 Room Air 06/12/17 01:30 96 Room Air 06/12/17 01:22 36.6 95 16 132/91 (105) 96 Room Air 06/12/17 00:32 36.8 92 20 136/69 96 Room Air 06/11/17 22:13 92 18 129/91 97 Room Air 06/11/17 20:21 36.7 96 16 157/95 95 Room Air General Appearance: no apparent distress Laboratory Results: Results Past 24 Hours Test 06/11/17 20:52 06/11/17 20:54 Range/Units Urine Test NEG NEG White Blood Count 12.65 4.8-10.8 K/uL Red Blood Count 4.65 4.2-5.4 M/uL Hemoglobin 13.9 12.0-16.0 g/dL Hematocrit 42.0 37-47 % Mean Corpuscular Volume 90.3 80-100 fL Mean Corpuscular Hemoglobin 29.9 25-34 pg Mean Corpuscular Hemoglobin Concent 33.1 32-36 g/dl Platelet Count 276 130-400 K/uL Mean Platelet Volume 10.3 7.4-10.4 fL Neutrophils (%) (Auto) 62.9 % Lymphocytes (%) (Auto) 29.0 % Monocytes (%) (Auto) 5.7 % Eosinophils (%) (Auto) 1.7 % Basophils (%) (Auto) 0.5 % Neutrophils # (Auto) 7.96 1.4-6.5 K/uL Lymphocytes # (Auto) 3.67 1.2-3.4 K/uL Monocytes # (Auto) 0.72 0.11-0.59 K/uL Eosinophils # (Auto) 0.21 0-0.5 K/uL Basophils # (Auto) 0.06 0-0.2 K/uL RDW Standard Deviation 41.3 36.4-46.3 fL RDW Coefficient of Variation 12.7 11.5-14.5 % Immature Granulocyte % (Auto) 0.2 % Immature Granulocyte # (Auto) 0.03 0.00-0.02 K/uL Sodium Level 138 136-145 mmol/L Potassium Level 4.2 3.5-5.1 mmol/L Chloride Level 104 98-107 mmol/L Carbon Dioxide Level 31 21-32 mmol/L Anion Gap 3.0 3-11 mmol/L Blood Urea Nitrogen 14 7-18 mg/dl Creatinine 0.84 0.60-1.20 mg/dl Est Creatinine Clear Calc Drug Dose 127.6 ml/min Estimated GFR () 102.9 Estimated GFR (Non- 88.8 BUN/Creatinine Ratio 16.7 10-20 Random Glucose 106 70-99 mg/dl Calcium Level 9.4 8.5-10.1 mg/dl Total Bilirubin 0.3 0.2-1 mg/dl Direct Bilirubin < 0.1 0-0.2 mg/dl Aspartate Amino Transf (AST/SGOT) 19 15-37 U/L Alanine Aminotransferase (ALT/SGPT) 48 12-78 U/L Alkaline Phosphatase 77 45-117 U/L Total Protein 8.2 6.4-8.2 gm/dl Albumin 4.0 3.4-5.0 gm/dl Lipase 116 73-393 U/L Assessment & Plan s/p ventral hernia repair will ambulate pt and get her a tray if feeling ok after can d/c home instructions given will need lovenox at home daily for 2 weeks b/c of her factor V leiden def
[2017-06-13] MEDS: HYDROCODONE/ACETAMOPHEN 5/325MG TAB PO PRN (03:58)
[2017-06-13 04:10] VITALS: BP 135/80; PULSE 94; TEMP 37.1; O2SAT 97
[2017-06-13] MEDS: ONDANSETRON INJ 2 MG/ML 2 ML VIAL IV PRN ×2 (05:50→11:22)
[2017-06-13] MEDS: MoRPHine SULFATE 4 MG/ML 1 ML CARP\\VIAL IV PRN ×2 (05:50→11:22)
[2017-06-13 06:58] LABS: PROTHROMBIN TIME (PATIENT) 11.2 SECONDS (9.0-12.0)
[2017-06-13] MEDS ORDERED: ENOXAPARIN 100 MG/1ML SYR SQ SCH (07:00)
[2017-06-13 07:05] VITALS: BP 100/66; PULSE 100; TEMP 36.8; O2SAT 93
--- NOTE | 2017-06-13 09:27 | Surgery Progress Note ---
Surgery Progress Note Date of Service Jun 13, 2017. Subjective Post OP Day: 1 doing ok. pain control adequate. Objective Vital Signs: Date Time Temp Pulse Resp B/P (MAP) Pulse Ox O2 Delivery O2 Flow Rate FiO2 06/13/17 07:05 36.8 100 19 100/66 (77) 93 Room Air 06/13/17 04:10 37.1 94 16 135/80 (98) 97 Room Air 06/12/17 23:45 Room Air 06/12/17 23:45 108 06/12/17 22:57 36.9 115 16 131/77 (95) 93 Room Air 06/12/17 16:30 Room Air 06/12/17 14:52 36.7 110 14 133/81 (98) 90 Room Air 06/12/17 14:25 36.7 109 16 120/86 (97) 90 Room Air 06/12/17 13:21 118 16 124/71 (88) 94 2.0 06/12/17 12:20 120 16 140/83 (102) 95 2.0 06/12/17 11:56 110 16 144/88 (106) 95 2.0 06/12/17 11:30 36.7 109 18 127/76 (93) 93 Room Air 2.0 06/12/17 11:30 93 Nasal Cannula 2.0 06/12/17 11:30 93 Room Air 2.0 06/12/17 11:00 36.2 99 18 122/79 95 Nasal Cannula 2 06/12/17 10:50 103 18 127/81 93 Nasal Cannula 2 06/12/17 10:40 109 18 136/81 96 Nasal Cannula 2 06/12/17 10:30 100 18 133/78 98 Mask 5 06/12/17 10:20 101 18 120/83 98 Mask 10 06/12/17 10:09 36 95 16 132/83 99 Mask 10 General Appearance: no apparent distress Respiratory/Chest: no respiratory distress, no accessory muscle use Abdomen: soft Incision(s): clean, dry, intact Laboratory Results: Results Past 24 Hours Test 06/13/17 06:30 Range/Units Prothrombin Time 11.2 9.0-12.0 SECONDS Prothromb Time International Ratio 1.0 0.9-1.1 Assessment & Plan 06/13/17 doing well/ok for d/c instructions given insurance approved home lovenox. will give for 2 weeks 06/12/17 s/p ventral hernia repair will ambulate pt and get her a tray if feeling ok after can d/c home instructions given will need lovenox at home daily for 2 weeks b/c of her factor V leiden def s/p ventral hernia repair will ambulate pt and get her a tray if feeling ok after can d/c home instructions given will need lovenox at home daily for 2 weeks b/c of her factor V leiden def
[2017-06-13 10:39] VITALS: BP 100/66; PULSE 100; TEMP 36.8; O2SAT 93
[2017-06-13] MEDS: LABETALOL HCL 200 MG TAB PO SCH (11:05)
--- NOTE | 2017-06-16 10:48 | DISCHARGE SUMMARY ---
PRIMARY DISCHARGE DIAGNOSES: 1. Incarcerated ventral hernia. 2. Small bowel obstruction. 3. Factor V Leiden deficiency. SECONDARY DISCHARGE DIAGNOSES: 1. Asthma. 2. Hypertension. 3. History of pulmonary embolism. PROCEDURE PERFORMED: Laparoscopic converted to open ventral hernia repair with mesh, enterolysis. HOSPITAL COURSE: The patient is a 36-year-old female scheduled for outpatient hernia repair, presented to the Emergency Department with complaint of persistent pain. CT showed an incarcerated ventral hernia and small bowel obstruction. She was admitted to the surgery service overnight and taken to the operating room in the morning for repair of hernia. Laparoscopic repair was converted to open. The procedure was well tolerated. She was returned to the surgical floor. On postoperative day #1, she made fair progress. By day #2, she was tolerating diet and oral analgesics. Her incision was clean and dry. She was stable for discharge. DISCHARGE INSTRUCTIONS: Discharge home. Follow up with Dr. De Los Santos in 7-10 days. DISCHARGE MEDICATIONS: Lovenox 120 mg subQ q. 12 hours x2 weeks and [place] 1-2 tablets every 4 hours as needed. Resume home medications, Ventolin HFA 2 puffs q. 6 hours as needed, vitamin C supplement, vitamin D supplement, ferrous sulfate 325 mg daily, Advair Diskus 1 puff b.i.d. as needed, labetalol 200 mg in the morning and 100 mg at bedtime, levothyroxine 112 mcg daily, Zantac 300 mg daily, and Effexor 150 mg daily.
== END 2017-06-13 12:57 | disposition home or self-care (01) ==
LOC: C.EDB 20:19 → C.MSN 23:54 → ENRESERV 06-12 00:10
PROVIDERS: ADMIT Surgery; ATTEND Surgery
DX: K43.6 Other and unspecified ventral hernia with obstruction, without gangrene (principal); D68.51 Activated protein C resistance; I10 Essential (primary) hypertension; J45.909 Unspecified asthma, uncomplicated; Z53.31 Laparoscopic surgical procedure converted to open procedure; Z86.711 Personal history of pulmonary embolism; Z87.01 Personal history of pneumonia (recurrent); Z87.440 Personal history of urinary (tract) infections; Z82.49 Family history of ischemic heart disease and other diseases of the circulatory system

== ENCOUNTER 2019-01-19 10:39 | Observation (INO) ==
--- NOTE | 2019-01-03 12:09 | Anesthesiology Consultation ---
Date of Service January 03, 2019 Assessment & Plan (1) Encounter for pre-operative examination: Plan: - Check test AM DOS - Hx "mild" epidermolysis bullosa (easy skin blistering). "Any friction or adhesive placed on skin will immediately induce new blisters to form." In regards to upcoming surgery, "avoid any adhesive bandages on her skin after her operation." If any questions, to contact timber bucker (Dr. Nieves) at [phone]; surgeon made aware of dermatology recommendations and faxed above communication to him for his review. Chart Review Chart Review: Acceptable Risk for Surgery and Patient seen in Pre Admission Testing Teaching & Discussion Pre-Anesthesia Teaching/Discussion Notes: Instructed NPO after midnight before surgery,except medications with 15 cc of water. Medication instructions provided according to the PAT guidelines. History Surgery Operation Date: 01/19/19 09:40 Proposed Procedures p Open Incisional Hernia Repair with Component Seperation with Mesh - Benji De Los Santos, DO Height/Weight Height: 5 ft 4 in Weight: 155.5 kg Allergies Allergy/AdvReac Type Severity Reaction Status Date / Time doxycycline Allergy Intermediate RASH Verified 12/29/18 14:00 Medications Home Medications Medication Instructions Recorded Confirmed Last Taken labetalol 200 mg PO QAM #0 01/09/16 12/29/18 07/14/18 ascorbic acid (vitamin C) 500 mg PO 3XWK #0 09/16/16 12/29/18 07/14/18 albuterol sulfate 2 - 4 puff INHALATION Q6H PRN #0 06/11/17 12/29/18 07/14/18 inhaler cholecalciferol (vitamin D3) 1 tab PO QAM #0 tab 06/11/17 12/29/18 07/14/18 ranitidine HCl 150 mg PO BID #0 tab 07/06/18 12/29/18 07/14/18 levothyroxine 125 mcg PO QAM 07/14/18 12/29/18 07/14/18 venlafaxine 225 mg PO QAM 07/14/18 01/03/19 07/14/18 Advair 1 puff INHALATION HS 12/29/18 12/29/18 Unknown montelukast [Singulair] 10 mg PO HS 12/29/18 12/29/18 Unknown azelastine 1 spray INTRANASAL Q12H 01/03/19 01/03/19 Unknown cetirizine 10 mg PO DAILY 01/03/19 01/03/19 Unknown hydroxyzine HCl 1 tab PO DAILY PRN 01/03/19 01/03/19 Unknown Past Medical History Medical History Anemia Anxiety Asthma STABLE DVT (deep venous thrombosis) 2013- ?RELATED TO OCP/DX FACTOR 5 LEIDEN MUTATION- ANTICOAGULATION X 1 YEAR Degenerative disc disease LUMBAR Depression Epidermolysis bullosa "MILD" Factor 5 Leiden mutation, heterozygous GERD (gastroesophageal reflux disease) CONTROLLED History of recent steroid use LEFT KNEE INJECTION (12/2018) Hypothyroidism Morbid obesity Pulmonary embolism 2013- ?RELATED TO OCP/DX FACTOR 5 LEIDEN MUTATION- ANTICOAGULATION X 1 YEAR Spondylisthesis Past Family History Family History Other Family history non-contributory Past Surgical History Surgical History History of section History of colonoscopy History of hernia repair Ventral hernia repair= 06/12/17= Grade I view, MAC 3, ETT 7.5 at [facility] History of laparoscopic adjustable gastric banding SUBSEQUENT REMOVAL History of laparoscopy X MULTIPLE (2/2 ENDOMETRIOSIS) History of tonsillectomy Past Anesthesia History No Hx of Anesthesia Complications (EXCEPT PONV) and No Family Hx of Anesthesia Complications History of PONV Yes Motion Sickness Screening History of Motion Sickness: Yes Social History Smoking Status: Never smoker Do You Dip or Chew Tobacco: No Hx Alcohol Use: Yes (RARELY) alcohol intake frequency: holidays/special occasions only Hx Substance Use: No substance use type: does not use Exercise / Class Metabolic Activity III < 4 Walking/Shop/Light housework Review of Systems Chronic intermittent cough felt 2/2 allergies unchanged. Patient denies chest pain, shortness of breath, wheezing, palpitations. Physical Exam Vital Signs VITALS BP 143/85 P 84 TEMP 98.3 SP02 97%RA RESP 18 PHYSICAL Full neck and c-spine range of motion. Full TMJ range of motion. TMD 3.5 finger breaths Mallampati Score 2 Dentition: missing molars/sides, missing filling on upper right side tooth per patient Lungs: clear throughout to auscultation Cardiac: regular rate and rhythm, no murmurs noted Spine: normal Carotid arteries: negative bruit Extremities: no edema Short, thick neck Testing Electrocardiogram Date: 01/03/19 Findings: + NSR @ (81) Chest X-Ray Date: 11/28/18 Findings: + NAD Laboratory Results 01/03/19 13:03 01/03/19 13:03
--- NOTE | 2019-01-03 12:17 | PAT Medication Instructions ---
Medication Instructions Date of Service January 03, 2019 Home Medications labetalol 200 mg PO QAM ascorbic acid (vitamin C) 500 mg PO 3XWK albuterol sulfate 2 - 4 puff INHALATION Q6H PRN cholecalciferol (vitamin D3) 1 tab PO QAM ranitidine HCl 150 mg PO BID levothyroxine 125 mcg PO QAM venlafaxine 350 mg PO QAM Advair 1 puff INHALATION HS montelukast [Singulair] 10 mg PO HS DO NOT take the morning of surgery ascorbic acid (vitamin C) 500 mg PO 3XWK cholecalciferol (vitamin D3) 1 tab PO QAM Take morning of surgery With a small sip of water, OTHERWISE NOTHING TO EAT OR DRINK AFTER MIDNIGHT: labetalol 200 mg PO QAM albuterol sulfate 2 - 4 puff INHALATION Q6H PRN (use if needed; please bring with you to hospital day of surgery if possible) ranitidine HCl 150 mg PO BID levothyroxine 125 mcg PO QAM venlafaxine 350 mg PO QAM Take evening before surgery albuterol sulfate 2 - 4 puff INHALATION Q6H PRN (if needed) ranitidine HCl 150 mg PO BID Advair 1 puff INHALATION HS montelukast [Singulair] 10 mg PO HS Other Notes If you have any questions please call us at [phone] or [phone] or [phone] or [phone]
[2019-01-03 14:16] LABS: Basophils # (auto) 0.05 K/uL (0-0.2); Basophils % (auto) 0.5 %; Eosinophils # (auto) 0.14 K/uL (0-0.5); Eosinophils % (auto) 1.3 %; Hematocrit (blood only) 39.1 % (37-47); Hemoglobin 12.9 g/dL (12.0-16.0); Immature Granulocytes # (auto) 0.04 K/uL (0.00-0.02); Immature Granulocytes % (auto) 0.4 %; Lymphocytes # (auto) 2.95 K/uL (1.2-3.4); Lymphocytes % (auto) 26.7 %; Mean Corpuscular Volume 88.9 fL (80-100); Mean Platelet Volume 10.2 fL (7.4-10.4); Monocytes # (auto) 0.78 K/uL (0.11-0.59); Monocytes % (auto) 7.1 %; Neutrophils # (auto) 7.07 K/uL (1.4-6.5); Platelet Count 261 K/uL (130-400); RDW Coefficient of Variation 12.9 % (11.5-14.5); White Blood Count 11.03 K/uL (4.8-10.8)
[2019-01-03 14:22] LABS: BUN Creatinine Ratio 18.3 (10-20); Est GFR (African American) 130.3; Est GFR (Non-African American) 112.4; Potassium 4.1 mmol/L (3.5-5.1)
[~2019-01-19 10:39] MED LIST changes: -ADVIN25/60 INH; -ALBUAER2 INH; -ASCO500C43 PO; +CEFAZOLIN 3,000 MG in DEXTROSE 5% 50 ML IV SCH; +CEFAZOLIN 3000MG 65 ML IV SCH; -CHOL100010 PO; -FERR325T51 PO; -LABE100T23 PO; -LEVO112T4 PO; +LR 15ML/HR IV SCH; -RANI300C PO; -VENL150C56 PO
[2019-01-19] MEDS ORDERED: MIDAZOLAM HCL 1 MG/ML 2ML VIAL ONE (11:01)
[2019-01-19] MEDS ORDERED: fentaNYL citrate 100 MCG/2 ML VIAL ONE ×2 (11:01→15:43)
[2019-01-19] MEDS ORDERED: LIDOCAINE HCL 2% 2 ML VIAL/AMP(20MG/ML) INFIL ONE (11:03)
[2019-01-19] MEDS ORDERED: PROPOFOL IV EMULSION 10 MG/ML 20 ML VIAL IV ONE (11:03)
[2019-01-19] MEDS ORDERED: ONDANSETRON INJ 2 MG/ML 2 ML VIAL ONE ×2 (11:03→16:56)
[2019-01-19] MEDS ORDERED: DEXAMETHASONE SOD INJ 4 MG/ML VIAL ONE ×2 (11:03)
[2019-01-19] MEDS ORDERED: ATROPINE SULFATE 0.1 MG/ML 10ML SYR IV PRN (11:05)
[2019-01-19] MEDS ORDERED: fentaNYL citrate 100 MCG/2 ML VIAL IV PRN (11:05)
[2019-01-19] MEDS ORDERED: ePHEDrine sulfate 50 MG/ML AMP IV PRN (11:05)
[2019-01-19] MEDS ORDERED: HYDROmorphone INJ 1 MG/ML SYRINGE IV PRN (11:05)
[2019-01-19] MEDS ORDERED: PHENYLEPHRINE 100MCG/ML 5ML SYR IV PRN (11:05)
[2019-01-19] MEDS ORDERED: PROMETHAZINE HCL 12.5 MG in SODIUM CHLORIDE 0.9% 50 ML IV PRN (11:05)
[2019-01-19] MEDS ORDERED: ONDANSETRON INJ 2 MG/ML 2 ML VIAL IV PRN ×2 (11:05→19:17)
[2019-01-19] MEDS ORDERED: SCOPOLAMINE 1.5 MG TDSY TD ONE (11:31)
[2019-01-19] MEDS ORDERED: SCOPOLAMINE 1.5 MG TDSY ONE (11:33)
[2019-01-19] MEDS ORDERED: BUPIVACAINE/EPINEPHRINE 0.5% MPF 1:200,000 30 ML VIAL ONE (11:53)
[2019-01-19 12:22] LABS: Pregnancy Test, Serum Negative (Negative)
--- NOTE | 2019-01-19 14:50 | History & Physical Bridge Note ---
Date of Service January 19, 2019 History & Physical Bridge Note I have examined the patient, reviewed the History & Physical and in the interval since the performance of the History & Physical I have noted the following changes of clinical significance: no changes noted
[2019-01-19] MEDS ORDERED: HYDROmorphone INJ 2 MG/ML SYR/VIAL ONE (15:50)
--- NOTE | 2019-01-19 17:24 | Operative Report ---
Post Operative Report Pre & Post Diagnosis Operation Date: 01/19/19 12:05 Pre-Op Diagnosis: Incisional Hernia Post-Op Diagnosis: Incisional Hernia Procedure Operation Date: 01/19/19 12:05 Actual Procedures p Open Incisional Hernia Repair with Component Seperation, with Mesh(Not Applicable) - Benji De Los Santos DO Surgeon Benji De Los Santos DO Section Maintainer halima Fernandez Estimated Blood Loss 15 Findings Consistent with Post-Op Diagnosis Specimens hernia sac Description of Procedure After informed consent was obtained the patient was taken to the operating room and placed in supine position. After successful intubation the abdomen was sterilely prepped and draped in usual fashion. An upper midline incision was made directly over the visible hernia. This was carried down through soft tissue using cautery. We readily encountered a large hernia sac. We opened it and entered the abdominal cavity. There was some omentum and small bowel within the hernia but this was easily reducible. We excised the hernia sac in 360 degrees leaving nothing but fascial edges. Next we skeletonized the fascia laterally on both sides. Once we got to the rectus/oblique junction we opened the fascia using cautery. We extended this component separation superiorly as well as inferiorly for the length of the incision bilaterally. This did make tension much less allowing us to perform a primary closure. I used #1 Ethibond in interrupted [id number] fashion to primarily close the defect with minimal tension. Once this was accomplished we thoroughly irrigated the wound. We had already skeletonized the fascia in 360 degrees for several inches around the defect. We used a 12 x 10 cm ovitex biologic mesh. It was secured to underlying fascia using 0 Ethibond in simple interrupted fashion. Once it was placed it laid nice and tension-free and covered the previous defect by several centimeters in all directions. We thoroughly irrigated the wound. There was adequate hemostasis. We placed a 10 flat Torin-Sapp drain into the wound and brought it out through a separate stab incision and secured it with 2-0 nylon. We then closed the wound in multiple layers using 0 Vicryl for the deeper layers 2-0 Vicryl for the mid layers and 3-0 Monocryl for skin. Benzoin Steri-Strips silver Acticoat dressing gauze and paper tape were used as a dressing. An abdominal binder was also placed. My physician animal care assistant was present through the entire case. Helped prep the patient he helped with retraction and exposure throughout the case. He also helped with wound closure and dressing placement. I attest to the content of the Intraoperative Record and any orders documented therein. Any exceptions are noted below.
[2019-01-19] MEDS ORDERED: KETOROLAC 30 MG/ML VIAL ONE (17:50)
[2019-01-19] MEDS ORDERED: ACETAMINOPHEN 1000 MG/100 ML IV IV ONE ×3 (17:53→17:55)
--- NOTE | 2019-01-19 18:34 | Anesthesiology Progress Note ---
Date of Service January 19, 2019 Anesthesia Post Procedure Vital Signs Vital Signs: Temp Pulse Pulse Pulse Resp BP BP 01/19/19 18:30 98 H 14 129/90 01/19/19 18:27 95 H 13 01/19/19 18:25 105 H 18 01/19/19 18:20 101 H 16 155/99 H 01/19/19 18:15 91 H 17 147/93 H 01/19/19 18:10 100 H 18 159/104 H 01/19/19 18:05 101 H 13 130/97 01/19/19 18:01 100 H 14 138/107 H 01/19/19 18:00 96 H 18 01/19/19 17:57 99 H 17 01/19/19 17:56 101 H 14 168/109 H 01/19/19 17:55 98 H 14 01/19/19 17:52 100 H 16 159/98 H 01/19/19 17:51 99 H 14 181/122 H 01/19/19 17:50 94 H 13 01/19/19 17:46 101 H 18 01/19/19 17:45 106 H 16 01/19/19 17:40 96 H 15 201/124 H 01/19/19 17:36 94 H 16 177/118 H 01/19/19 17:35 95 H 16 01/19/19 17:30 101 H 28 H 202/118 H 01/19/19 17:26 99 H 17 183/137 H 01/19/19 17:25 88 15 01/19/19 17:21 94 H 15 196/110 H 01/19/19 17:20 96 H 15 01/19/19 17:18 36.4 C L 102 H 95 H 16 173/118 H 01/19/19 11:11 36.9 C 95 H 18 148/93 H BP Pulse Ox 01/19/19 18:30 92 01/19/19 18:27 91 01/19/19 18:25 93 01/19/19 18:20 94 01/19/19 18:15 90 01/19/19 18:10 93 01/19/19 18:05 89 L 01/19/19 18:01 93 01/19/19 18:00 91 01/19/19 17:57 90 01/19/19 17:56 95 01/19/19 17:55 95 01/19/19 17:52 95 01/19/19 17:51 92 01/19/19 17:50 93 01/19/19 17:46 96 01/19/19 17:45 97 01/19/19 17:40 86 L 01/19/19 17:36 88 L 01/19/19 17:35 87 L 01/19/19 17:30 91 01/19/19 17:26 89 L 01/19/19 17:25 84 L 01/19/19 17:21 89 L 01/19/19 17:20 89 L 01/19/19 17:18 196/110 H 88 L 01/19/19 11:11 98 Pain Intensity Abdomen: Pain Intensity: 8 Notes Mental Status: alert / awake / arousable Patient Amnestic to Procedure: Yes Nausea / Vomiting: adequately controlled Pain: adequately controlled Airway Patency, RR, SpO2: stable & adequate BP & HR: stable & adequate Hydration State: stable & adequate Anesthetic Complications: no major complications apparent
[2019-01-19] MEDS ORDERED: LABETALOL HCL IV 5 MG/ML 20ML IV ONE (18:38)
[2019-01-19] MEDS ORDERED: LABETALOL HCL IV 5 MG/ML 20ML IV STA (18:39)
[2019-01-19] MEDS ORDERED: MoRPHine SULFATE 4 MG/ML 1 ML CARP\\VIAL IV PRN (19:17)
[2019-01-19] MEDS ORDERED: HYDROCODONE/ACETAMOPHEN 5/325MG TAB PO PRN (19:17)
[2019-01-19] MEDS ORDERED: ALBUTEROL HFA 8 GM INHALER INH PRN (19:17)
[2019-01-19] MEDS ORDERED: MoRPHine SULFATE 2 MG/ML CARP IV PRN (19:17)
[2019-01-19] MEDS: LACTATED RINGER'S 1,000 ML IV SCH (19:33)
[2019-01-19] MEDS ORDERED: hydrOXYzine HCl 10 MG TAB PO PRN (19:38)
[2019-01-19] MEDS ORDERED: FLUTICASONE/SALMETEROL 250/50 (ADVAIR) 14 PUFF/1 INHALER INH SCH (21:00)
[2019-01-19] MEDS ORDERED: MONTELUKAST SODIUM 10 MG TABLET PO SCH (21:00)
[2019-01-19] MEDS: CEFAZOLIN 2000MG 2,000 MG/15 ML SYR IV SCH (21:08)
[2019-01-19] MEDS: LABETALOL HCL 100 MG TAB PO SCH (21:09)
[2019-01-19] MEDS: HYDROCODONE/ACETAMOPHEN 5/325MG TAB PO PRN (21:09)
[2019-01-19] MEDS: CHECK SCOPOLAMINE PATCH PLACEMENT SCH (21:13)
[2019-01-20] MEDS: CHECK SCOPOLAMINE PATCH PLACEMENT SCH ×2 (00:05→09:53)
[2019-01-20] MEDS: CEFAZOLIN 2000MG 2,000 MG/15 ML SYR IV SCH ×2 (04:07→11:54)
[2019-01-20] MEDS: LACTATED RINGER'S 1,000 ML IV SCH (05:50)
[2019-01-20] MEDS: HYDROCODONE/ACETAMOPHEN 5/325MG TAB PO PRN ×3 (05:50→11:59)
[2019-01-20] MEDS ORDERED: LEVOTHYROXINE SODIUM 125 MCG TABLET PO SCH (06:30)
[2019-01-20] MEDS ORDERED: VENLAFAXINE HCL XR 75 MG CAPXR PO SCH (09:00)
[2019-01-20] MEDS ORDERED: FOLIC ACID 1 MG TAB PO SCH (09:00)
[2019-01-20] MEDS ORDERED: ENOXAPARIN INJ 40 MG/0.4 ML SYR SQ SCH (09:00)
[2019-01-20] MEDS: LABETALOL HCL 100 MG TAB PO SCH (09:55)
--- NOTE | 2019-01-20 10:24 | Surgery Progress Note ---
Date of Service January 20, 2019 Assessment & Plan (1) Incisional hernia: POD 1 doing well ok for d/c instructions given Subjective doing as expected. paty liquid diet Physical Exam Vital Signs (Past 24 Hours): Last Vital Signs Temp 36.7 C 01/20/19 07:20 Pulse 89 01/20/19 09:54 Resp 18 01/20/19 07:20 BP 150/84 H 01/20/19 09:54 Pulse Ox 95 01/20/19 08:14 Physical Exam: alert. nad abd: soft. expected tenderness. LUISA serous
[2019-01-20 12:18] VITALS: BP 141/78; PULSE 84; TEMP 98.2; O2SAT 90
--- NOTE | 2019-01-21 15:53 | Discharge Summary ---
Date of Service January 25, 2019 Discharge Data Procedures Performed Operation Date: 01/19/19 12:05 Actual Procedures p Open Incisional Hernia Repair with Component Seperation, with Mesh(Not Applicable) - Benji De Los Santos DO
--- NOTE | 2019-01-23 13:19 | Discharge Summary ---
PRIMARY DISCHARGE DIAGNOSIS: Incisional hernia. SECONDARY DISCHARGE DIAGNOSES: 1. Asthma. 2. Gastroesophageal reflux. 3. Depression. 4. Hypertension. 5. Factor V Leiden mutation. PROCEDURE PERFORMED: Open incisional hernia repair with component separation. HOSPITAL COURSE: The patient is a 38-year-old female taken to the operating room for elective repair of incisional hernia. The procedure was well tolerated. She was admitted for overnight observation, given the size of her hernia and multiple other medical problems. She did well postoperatively. On postoperative day 1, she was tolerating diet and oral analgesics. Her incision was clean and dry. LUISA output was minimal. She was stable for discharge home. DISCHARGE INSTRUCTIONS: Discharge home. Follow up with Dr. De Los Santos's office in 3-4 days for removal of LUISA drain. DISCHARGE MEDICATIONS: [place]ords 1-2 tablets every 4 hours as needed, Phenergan/codeine suspension 5 mL every 6 hours as needed, Lovenox daily as directed by [facility]. Continue other home medications, Advair 1 puff at bedtime, albuterol 2 puffs as needed, vitamin C supplement, Astelin nasal spray every 12 hours, Zyrtec 10 mg daily, folic acid 1 mg daily, hydroxyzine 1 tablet daily, labetalol 150 mg b.i.d., levothyroxine 125 mcg daily, Singulair 10 mg at bedtime, Zantac 150 mg b.i.d., venlafaxine 225 mg daily.
== END 2019-01-20 14:06 | disposition home or self-care (01) ==
LOC: 3W 10:39 → ASU 10:39